=== PATIENT | female | born 1995 | race Caucasian/White ===

== ENCOUNTER 2018-04-16 16:14 | Emergency (ER) | payer BC ==
[~2018-04-16] VITALS: Ht 167.6 cm; Wt 84.6 kg
[2018-04-16 16:23] VITALS: BP 111/80; Ht 167.6 cm; Wt 84.6 kg
== END 2018-04-16 17:00 | disposition left against medical advice (07) ==
LOC: ED 16:14
DX: R51 Headache (principal); H53.8 Other visual disturbances; Z34.93 Encounter for supervision of normal pregnancy, unspecified, third trimester
CPT/HCPCS: J1200; J2765; J7030